=== PATIENT | female | born 1975 | race Caucasian/White ===

== ENCOUNTER 2022-10-03 13:37 | Emergency (ER) | payer OTHER, SELFPAY ==
[2022-10-03 14:12] VITALS: BP 170/87; PULSE 100; RESP 20; TEMP 37.2; O2SAT 97; BMI 25.0
--- NOTE | 2022-10-03 15:29 | PC.NURSE ---
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 she was being followed by flavia and when she stopped to tred water, she got bit by flavia. flavia was seen by swimmer and jaymeer following.
[2022-10-03] MEDS: LIDOCAINE 1% (PF) 5 ML SUBCUT (15:50)
[2022-10-03] MEDS: TET,DIPH,PERTUSS(ACELL),VAC/PF 0.5 ML SYRINGE IM (15:51)
[2022-10-03] MEDS: IBUPROFEN 400 MG TABLET 800 MG PO (16:58)
--- NOTE | 2022-10-03 16:58 | ED_ITS ---
HPI - Wound/Laceration <Shayla Ramirez PA-C - Last Filed: 10/03/22 17:07> General Chief Complaint: Wound/Laceration Stated Complaint: bit by seal while swimming Time Seen by Provider: 10/03/22 15:41 Source: patient Mode of arrival: Ambulatory History of Present Illness HPI narrative: This is a 47-year-old female who was open water swimming this morning. She stopped to talk to her support person in a boat and a harbor seal came up and bit her left lower extremity. She was wearing a wet suit the time and the seal bit through the wet suit. She did not apply any therapy or take any medication prior to arrival in the emergency department. She does not know her last tetanus vaccine. She takes amitriptyline at home and hydroxyzine as needed anxiety. Related Data Previous Rx's Medication Instructions Recorded doxycycline hyclate 100 mg capsule 100 mg PO DAILY #7 caps 10/03/22 Allergies Allergy/AdvReac Type Severity Reaction Status Date / Time No Known Drug Allergies Allergy Verified 10/03/22 14:16 Review of Systems <Shayla Ramirez PA-C - Last Filed: 10/03/22 17:07> Review of Systems ROS Unobtainable: All systems reviewed & are unremarkable except as noted in HPI and below Patient History <Shayla Ramirez PA-C - Last Filed: 10/03/22 17:07> Social History Smoking Status: Never smoker Smoking Status: Never smoker alcohol intake frequency: a few times a week Substance Use Type: marijuana Exam <Shayla Ramirez PA-C - Last Filed: 10/03/22 17:07> Narrative Exam Narrative: GENERAL: 47 year old patient appears stated age. Well-developed patient, in no distress. NEURO: AOx3. RESPIRATORY: No distress EXTREMITIES: No edema or joint tenderness. SKIN: Right lower extremity wound. 2-1/2 cm Linear laceration with central puncture over anterior lateral left lower extremity, with several other 0.5-1 cm long superficial abrasions. Distal pulses intact. Initial Vital Signs Initial Vital Signs: Vital Signs Temperature 99 F 10/03/22 14:12 Pulse Rate 100 H 10/03/22 14:12 Respiratory Rate 20 10/03/22 14:12 Blood Pressure 170/87 H 10/03/22 14:12 Pulse Oximetry 97 10/03/22 14:12 Oxygen Delivery Method Room Air 10/03/22 14:12 <Margo Pride DO - Last Filed: 10/03/22 19:36> Initial Vital Signs Initial Vital Signs: Vital Signs Temperature 99 F 10/03/22 14:12 Pulse Rate 100 H 10/03/22 14:12 Respiratory Rate 20 10/03/22 14:12 Blood Pressure 170/87 H 10/03/22 14:12 Pulse Oximetry 97 10/03/22 14:12 Oxygen Delivery Method Room Air 10/03/22 14:12 Procedures <Shayla Ramirez PA-C - Last Filed: 10/03/22 17:07> Laceration Repair Laceration 1: Time of procedure: 16:00 Site: lower extremity Side (If applicable): left Size (cm): 2.5 Description: flap (Shallow) Depth: simple, single layer Local Anesthetic: lidocaine 1% (1.5cc) Skin layer closed with: nylon Skin layer suture size: 4-0 Course <Shayla Ramirez PA-C - Last Filed: 10/03/22 17:07> Orders Ordered: Discontinued Medications Diphtheria/Tetanus/Acell Pertussis (Tet,Diph,Pertuss(Acell),Vac/Pf 0.5 Ml Syringe) 0.5 ml IM .ONCE ONE Stop: 10/03/22 15:45 Last Admin: 10/03/22 15:51 Dose: 0.5 ml Documented By: NR Doxycycline Hyclate (Doxycycline Hyclate 100 Mg Tablet) 100 mg PO NOW ONE Stop: 10/03/22 16:51 Last Admin: 10/03/22 16:59 Dose: 100 mg Documented By: NR Ibuprofen (Ibuprofen 400 Mg Tablet) 800 mg PO NOW ONE Stop: 10/03/22 16:54 Last Admin: 10/03/22 16:58 Dose: 800 mg Documented By: NR Lidocaine HCl (Lidocaine 1% (Pf) 5 Ml) 5 ml SUBCUT NOW ONE Stop: 10/03/22 15:45 Last Admin: 10/03/22 15:50 Dose: 5 ml Documented By: NR Consultations Consultation #1: Dr. Becker, infectious disease at [facility]. Discussed whether patient needs rabies prophylaxis, Dr. Lyn does not recommend rabies prophylaxis;reports very low chance of rabies in marine mammals Time: 16:45 Vital Signs Vital signs: Vital Signs - 8 hr 10/03/22 14:12 Temperature 99 F Pulse Rate 100 H Respiratory Rate 20 Blood Pressure 170/87 H Pulse Oximetry 97 Oxygen Delivery Method Room Air <Margo Pride DO - Last Filed: 10/03/22 19:36> Orders Ordered: Discontinued Medications Diphtheria/Tetanus/Acell Pertussis (Tet,Diph,Pertuss(Acell),Vac/Pf 0.5 Ml Syringe) 0.5 ml IM .ONCE ONE Stop: 10/03/22 15:45 Last Admin: 10/03/22 15:51 Dose: 0.5 ml Documented By: NR Doxycycline Hyclate (Doxycycline Hyclate 100 Mg Tablet) 100 mg PO NOW ONE Stop: 10/03/22 16:51 Last Admin: 10/03/22 16:59 Dose: 100 mg Documented By: NR Ibuprofen (Ibuprofen 400 Mg Tablet) 800 mg PO NOW ONE Stop: 10/03/22 16:54 Last Admin: 10/03/22 16:58 Dose: 800 mg Documented By: NR Lidocaine HCl (Lidocaine 1% (Pf) 5 Ml) 5 ml SUBCUT NOW ONE Stop: 10/03/22 15:45 Last Admin: 10/03/22 15:50 Dose: 5 ml Documented By: NR Vital Signs Vital signs: Vital Signs - 8 hr 10/03/22 14:12 Temperature 99 F Pulse Rate 100 H Respiratory Rate 20 Blood Pressure 170/87 H Pulse Oximetry 97 Oxygen Delivery Method Room Air MDM - Wound/Laceration <Shayla Ramirez PA-C - Last Filed: 10/03/22 17:07> MDM Narrative Medical decision making narrative: Multiple etiologies for patient's symptoms considered including, but not limited to: Seal bite. Per literature review, should provide antibiotic prophylaxis for mycoplasma infection. Prescribed 7 day course of doxycycline. Given gaping flap wound, decision made to sutured loosely. Wound irrigated with sterile wa ter and repaired under clean conditions. Patient advised to have sutures removed in 7-10 days. Patient's symptoms improved over duration of stay with above-stated therapies. Findings and discharge diagnosis discussed with patient/family followed by verbalization of understanding Return precautions discussed with patient/family whom verbalize understanding of diagnosis and plan Discharge Plan Departure Patient Disposition: Home Clinical Impression: Seal bite Instructions: DI for Animal Bites Activity Restrictions/Additional Instructions: *You have been diagnosed with seal bite. You are being prescribed doxycycline antibiotic which she should take for 7 days, please take all the pills even if you are feeling better. You should be seen by your doctor or emergency room if you develop fever, foul smell, pus or other concerning symptoms from your wound. You should stay out of the salt water and poor water until your skin is healed. You can take ibuprofen for pain as needed. Please have the sutures removed in 7-10 days. *What to do: *Please continue to take your regular medications as directed. [x] New medication prescriptions sent to your pharmacy: [ [facility]] [ ] New medication written as a paper prescription [ ] No new medications given *Please follow up with your primary care provider in 2-3 days, call for an appointment. Let them know you were seen in the Emergency Department and that we ask that you be seen in follow up. We will electronically transmit a record of today's note if your PCP is in our system *If you do not have a primary care provider please contact the [facility] Resource line at [phone]. They will ask some questions about your medical history and help get you set up with a doctor in the community. *Return to Emergency Department if you should have any new, worsening or concerning symptoms, such as [fever greater than 101 F, shaking chills, worsening pain, persistent vomiting or other bothersome symptoms] Prescriptions: New doxycycline hyclate 100 mg capsule 100 mg PO DAILY Qty: 7 0RF Referrals: Miscellaneous,Doctor, [Primary Care Provider] - Stand Alone Forms: Patient Portal/API <Margo Pride DO - Last Filed: 10/03/22 19:36> Cosign ED Attending Shelbyature Attestation: I was immediately available in the department for consultation. Documentation has been reviewed. Case was discussed. Antibiotic choice was reviewed. Cases discussed regarding rabies prophylaxis with Dr. Walter from [place] as well as department of Health both do not recommend rabies prophylaxis at this time. Feel it was likely provoked attack as patient was swimming actively in the water with seal.
[2022-10-03] MEDS: DOXYCYCLINE HYCLATE 100 MG TABLET PO (16:59)
== END 2022-10-03 17:10 | disposition home or self-care (01) ==
PROVIDERS: Emergency Provider Physician Assistant
DX: S81.852A Open bite, left lower leg, initial encounter (principal); W56.31XA Bitten by other marine mammals, initial encounter; Z23 Encounter for immunization
CPT/HCPCS: 12001; 90471; 99283; 90715